=== PATIENT | female | born 1955 | race Caucasian/White ===

== ENCOUNTER 2023-06-06 10:28 | Inpatient (IN) | payer MEDICARE, MEDICAID ==
[~2023-06-06] VITALS: Ht 162.6 cm; Wt 86.3 kg
[~2023-06-06 10:28] MED LIST: ALBUPOW26 XX; CITA-73 PO; FAMO20TA10 PO; LEVO125T7 PO; LORA10TA6 PO; RABE20TA19 PO
[2023-06-06 11:33] LABS: Basophils # (auto) 0.1 10 ^3/uL (0-0.2); Basophils % (auto) 0.9 % (0.0-2.0); Eosinophils # (auto) 0.4 10 ^3/uL (0-0.8); Eosinophils % (auto) 3.8 % (0.0-7.0); Hemoglobin 14.5 g/dL (12.2-16.2); Lymphocytes # (auto) 2.5 10 ^3/uL (0.4-5.4); Lymphocytes % (auto) 22.2 % (10.0-50.0); Mean Corpuscular Hemoglobin 29.7 pg (28.0-32.0); Mean Corpuscular Volume 89.8 fL (80.0-100.0); Monocytes # (auto) 0.7 10 ^3/uL (0-1.3); Monocytes % (auto) 6.1 % (0.0-12.0); Neutrophils # (auto) 7.7 10 ^3/uL (1.6-8.6); Nucleated Red Blood Cells % 0.1 %; Red Cell Distribution Width 13.7 % (11.8-14.3); White Blood Cell 11.5 10^3/uL (4.4-10.8)
[2023-06-06 12:18] LABS: Potassium 3.7 mmol/L (3.5-5.1)
[2023-06-06 12:27] LABS: Albumin 3.7 g/dL (3.4-5.0); BUN/Creatinine Ratio 26.8 (10.0-20.0); Bilirubin, Total 0.3 mg/dL (0.2-1.0); Calcium 8.7 mg/dL (8.5-10.1); Total Protein 6.6 g/dL (6.4-8.2)
[2023-06-06 13:22] LABS: Urine Bacteria FEW /hpf (None Seen); Urine Blood Negative /uL (Negative); Urine Clarity Clear (Clear); Urine Color Yellow (Yellow); Urine Mucus FEW (None Seen); Urine Protein, UAD Negative (Negative); Urine Specific Gravity 1.021 (1.001-1.035); Urine Urobilinogen Normal (Negative); Urine WBC 1 /hpf (0 - 5)
[2023-06-06] MEDS ORDERED: DOCUSATE SOD 100 MG CAP PO PRN (14:30)
[2023-06-06] MEDS ORDERED: NITROGLYCERIN 0.4 MG SL TAB SL PRN (14:30)
[2023-06-06] MEDS ORDERED: ACETAMINOPHEN 325 MG TAB PO PRN (14:30)
[2023-06-06] MEDS ORDERED: IPRATROPIUM BROM 0.5 MG/2.5ML INH SOL NEB PRN (14:30)
[2023-06-06] MEDS ORDERED: cefTRIAXone 1GM/50ML D5W 50 ML IV ONE (14:30)
[2023-06-06] MEDS ORDERED: MORPHINE SULFATE INJ 2 MG/ml SYRG IV PRN (14:30)
[2023-06-06] MEDS ORDERED: ONDANSETRON HCL 4 MG/2 ML VIAL IV PRN (14:30)
[2023-06-06] MEDS ORDERED: PANTOPRAZOLE 40 MG TAB PO ONE (14:30)
[2023-06-06] MEDS: ASPirin-EC 325mg tab PO ONE ×2 (14:30→17:20)
[2023-06-06] MEDS ORDERED: ALBUTEROL SULF 2.5 MG/0.5ML(0.5%) NEB SOLN NEB PRN (14:30)
[2023-06-06] MEDS ORDERED: IOHEXOL 350 MG/ML 100ML IJ ONE (14:57)
[2023-06-06] MEDS ORDERED: LACTATED RINGER'S 1,000 ML IV ONE (15:00)
[2023-06-06 21:39] VITALS: BP 145/73; PULSE 74; RESP 18; TEMP 98.2; O2SAT 94
[2023-06-06] MEDS ORDERED: ATORVASTATIN 20 MG TAB PO SCH (22:00)
[2023-06-07] MEDS ORDERED: cefTRIAXone 1GM/50ML D5W 50 ML IV SCH (09:00)
[2023-06-07] MEDS ORDERED: ENOXAPARIN SOD 40 MG/0.4 ML SYRINGE SC SCH (10:00)
[2023-06-07] MEDS ORDERED: PATIENTS OWN MEDICATION (Levothyroxine Sodium 125 MCG) PO SCH (10:00)
[2023-06-07] MEDS ORDERED: PANTOPRAZOLE 40 MG TAB PO SCH (10:00)
[2023-06-07] MEDS ORDERED: ASPirin-EC 81 mg tab PO SCH (10:00)
[2023-06-07] MEDS ORDERED: LEVOTHYROXINE SODIUM 50 MCG TAB PO SCH (10:00)
== END 2023-06-06 21:46 | disposition left against medical advice (07) | DRG 311 ==
LOC: ER 10:28 → TELE 14:55
PROVIDERS: ADMIT Nurse Practitioner Family; ATTEND Nurse Practitioner Family
DX: I24.9 Acute ischemic heart disease, unspecified (principal); N30.00 Acute cystitis without hematuria; J45.909 Unspecified asthma, uncomplicated; F41.9 Anxiety disorder, unspecified; E89.0 Postprocedural hypothyroidism; E66.9 Obesity, unspecified; Z90.49 Acquired absence of other specified parts of digestive tract; Z90.710 Acquired absence of both cervix and uterus; Z68.32 Body mass index [BMI] 32.0-32.9, adult
CPT/HCPCS: 36415; 71045; 71275; 80053; 81001; 83880; 84484; 85025; 85379; 87040; 87086; 93005; 96365; G0378; J0696